=== PATIENT | male | born 1980 | race Caucasian/White ===

== ENCOUNTER 2018-05-02 13:52 | Emergency (ER) | payer MEDICAID ==
[~2018-05-02] VITALS: Ht 175.3 cm; Wt 72.6 kg
[2018-05-02 13:56] VITALS: BP 123/84
[2018-05-02] MEDS ORDERED: ALPRAZolam 0.5 MG TAB PO SCH ×2 (14:10→14:15)
[2018-05-02] MEDS ORDERED: traZODone 50 MG TAB PO SCH (14:15)
--- NOTE | 2018-05-02 15:05 | NUR ---
PATIENT IS 37 YO MALE BIB SELF FOR MEDICATION REFILL FOR XANAX AND TRAZADONE, AWAKE AND ALERT VERY ANXIOUS, TO BED 9 FOR MD CLEMENTS.
[2018-05-02 16:11] VITALS: BP 117/76
--- NOTE | 2018-05-02 16:15 | NUR ---
Patient discharged with v/s stable. Written and verbal after care instructions given and explained. Patient verbalized understanding. Ambulatory with steady gait. All questions addressed prior to discharge. Advised to follow up with PMD.
== END 2018-05-02 16:15 | disposition home or self-care (01) ==
LOC: MED 13:52
DX: F41.9 Anxiety disorder, unspecified (principal); Z76.0 Encounter for issue of repeat prescription
CPT/HCPCS: 99283